=== PATIENT | female | born 1985 | race Caucasian/White ===

== ENCOUNTER 2017-11-04 20:45 | Emergency (ER) | payer MEDICAID ==
[~2017-11-04] VITALS: Ht 172.7 cm; Wt 55.0 kg
[2017-11-04] MEDS ORDERED: gentamicin inj 300 MG in normal saline 100ml IV soln 100 ML IV STA (21:11)
[2017-11-04] MEDS ORDERED: BACDS PO (21:17)
[2017-11-04] MEDS ORDERED: gentamicin 40 MG/1 ML inj ONE (21:21)
[2017-11-04] MEDS ORDERED: ampicillin/sulbac 3gm/NS 100ml 100 ML IV SCH (21:37)
[2017-11-04] MEDS ORDERED: bacitracin 15gm ointment TP ONE (21:55)
[2017-11-04 22:34] VITALS: BP 131/83
[2017-11-05] MEDS ORDERED: ampicillin/sulbac 3gm/NS 100ml 100 ML IV SCH (02:00)
[2017-11-05] MEDS ORDERED: lactobacillus rhamnosus 10,000 MMU CELLS/CAPSULE PO SCH (08:00)
== END 2017-11-04 22:35 | disposition home or self-care (01) ==
LOC: ER 20:45
DX: T24.112A Burn of first degree of left thigh, initial encounter (principal); T31.0 Burns involving less than 10% of body surface; L03.116 Cellulitis of left lower limb; F15.90 Other stimulant use, unspecified, uncomplicated; F17.210 Nicotine dependence, cigarettes, uncomplicated; Z88.5 Allergy status to narcotic agent; Z79.899 Other long term (current) drug therapy
CPT/HCPCS: 16000; 96365; 96368; 99284; J0295; J1580; J7030

== ENCOUNTER 2018-02-09 13:54 | Emergency (ER) | payer MEDICAID ==
[~2018-02-09] VITALS: Ht 172.7 cm; Wt 61.6 kg
[2018-02-09 14:21] LABS: CLARITY,URINE SLIGHTLY CLOUDY (Clear); COLOR,URINE YELLOW (Yellow); GLUCOSE, URINE NEGATIVE (Neg); KETONES,URINE NEGATIVE (Neg); LEUKOCYTE ESTERASE ,URINE NEGATIVE (Neg); NITRITES, URINE POSITIVE (Neg); OCCULT BLOOD,URINE NEGATIVE (Neg); PROTEIN,URINE NEGATIVE (Neg); UROBILINOGEN,URINE 0.2 E.U/dL (0.2-1.0)
[2018-02-09 14:22] LABS: URINE HCG NEGATIVE (NEG)
[2018-02-09 14:26] LABS: UA COLLECTION TYPE CLN CATCH MIDSTREAM
[2018-02-09 14:27] LABS: BACTERIA,URINE 3+ /HPF (Neg); RBC,URINE 0-2 /HPF (0-2); SQUAMOUS EPITHELIAL CELL,UR MODERATE /LPF (FEW)
[2018-02-09 14:35] LABS: BASOPHILS % (AUTO) 0.5 % (0-1); EOSINOPHILS # (AUTO) 0.1 X10'3 (0-0.9); EOSINOPHILS % (AUTO) 1.4 % (0-6); HEMATOCRIT 37.3 % (35.0-45.0); HEMOGLOBIN 13.1 g/dl (12.0-16.0); LYMPHOCYTES % (AUTO) 30.9 % (21-51); MEAN CORPUSCULAR HEMOGLOBIN 32.6 PG (27.0-31.0); MEAN PLATELET VOLUME 8.1 FL (7.4-10.4); MONOCYTES # (AUTO) 0.5 X10'3 (0-0.9); MONOCYTES % (AUTO) 7.6 % (2-12); NEUTROPHILS # (AUTO) 3.9 X10'3 (1.8-7.7); NEUTROPHILS % (AUTO) 59.6 % (42-75); PLATELET COUNT 355 X10'3 (140-440); RED BLOOD COUNT 4.01 X10'6 (4.20-5.60); RED CELL DISTRIBUTION WIDTH 12.1 % (11.5-14.5); WHITE BLOOD COUNT 6.5 X10'3 (4.5-11.0)
[2018-02-09 14:39] LABS: INR 1.1 INR; PROTHROMBIN TIME 11.3 SECONDS (9.0-12.0)
[2018-02-09 14:45] LABS: ALANINE AMINOTRANSFERASE 16 U/L (12-78); ALBUMIN 3.9 G/DL (3.4-5.0); ALBUMIN/GLOBULIN RATIO 1.3 (1.1-1.5); ALKALINE PHOSPHATASE 79 IU/L (46-116); ANION GAP 6 (8-16); ASPARTATE AMINO TRANSFERASE 11 U/L (10-37); BILIRUBIN,TOTAL 0.2 MG/DL (0.1-1.0); BLOOD UREA NITROGEN 15 MG/DL (7-18); BUN/CREATININE RATIO 17.6 (6.6-38.0); CALCIUM 9.4 MG/DL (8.5-10.1); CHLORIDE 106 MMOL/L (99-107); CREATININE 0.85 MG/DL (0.40-0.90); GLUCOSE 98 MG/DL (70-104); SODIUM 142 MMOL/L (135-145); TOTAL CARBON DIOXIDE 29.7 MMOL/L (24-32); TOTAL PROTEIN 6.8 G/DL (6.4-8.2); eGFR 77 ML/MIN
[2018-02-09 15:07] VITALS: BP 100/61
[2018-02-09] MEDS ORDERED: CIPR-230 PO (15:55)
== END 2018-02-09 16:10 | disposition home or self-care (01) ==
LOC: ER 13:54
DX: N39.0 Urinary tract infection, site not specified (principal); N83.201 Unspecified ovarian cyst, right side; G43.909 Migraine, unspecified, not intractable, without status migrainosus; J45.909 Unspecified asthma, uncomplicated; F15.90 Other stimulant use, unspecified, uncomplicated; Z88.6 Allergy status to analgesic agent
CPT/HCPCS: 36415; 76856; 80053; 81001; 81025; 85025; 85610; 87077; 87088; 87186; 99285

== ENCOUNTER 2018-02-17 10:39 | Emergency (ER) | payer MEDICAID ==
[~2018-02-17] VITALS: Ht 172.7 cm; Wt 61.0 kg
[~2018-02-17 10:39] MED LIST: CIPR-230 PO
[2018-02-17 10:45] VITALS: BP 122/66
[2018-02-17] MEDS ORDERED: PENI500T2 PO (11:06)
== END 2018-02-17 11:17 | disposition home or self-care (01) ==
LOC: ER 10:40
DX: J02.9 Acute pharyngitis, unspecified (principal); G43.909 Migraine, unspecified, not intractable, without status migrainosus; J45.909 Unspecified asthma, uncomplicated; F15.10 Other stimulant abuse, uncomplicated; Z88.5 Allergy status to narcotic agent; Z79.2 Long term (current) use of antibiotics
CPT/HCPCS: 99283

== ENCOUNTER 2018-03-09 05:12 | Emergency (ER) | payer MEDICAID ==
[~2018-03-09] VITALS: Ht 172.7 cm; Wt 90.3 kg
[~2018-03-09 05:12] MED LIST changes: +PENI500T2 PO
[2018-03-09 05:18] VITALS: BP 115/82
== END 2018-03-09 06:14 | disposition left against medical advice (07) ==
LOC: ER 05:13
DX: S90.562A Insect bite (nonvenomous), left ankle, initial encounter (principal); Z53.21 Procedure and treatment not carried out due to patient leaving prior to being seen by health care provider; W57.XXXA Bitten or stung by nonvenomous insect and other nonvenomous arthropods, initial encounter; Y93.89 Activity, other specified; Y92.89 Other specified places as the place of occurrence of the external cause; Y99.8 Other external cause status

== ENCOUNTER 2018-03-26 15:17 | Emergency (ER) | payer MEDICAID ==
[~2018-03-26] VITALS: Ht 172.7 cm; Wt 61.0 kg
[2018-03-26 15:19] VITALS: BP 122/73
[2018-03-26] MEDS ORDERED: metoclopramide 5 mg/ml inj IV ONE (16:00)
[2018-03-26] MEDS ORDERED: normal saline 1000ML IV soln IVB ONE (16:00)
[2018-03-26] MEDS ORDERED: LORazepam 2 mg/ml vial IV ONE (16:00)
[2018-03-26] MEDS ORDERED: dexamethasone sod phosphate 10mg/ml inj IV STA (16:39)
[2018-03-26] MEDS ORDERED: ketorolac trometh. 30mg/ml inj. IV ONE (16:40)
[2018-03-26] MEDS ORDERED: SUMA100T PO (16:43)
== END 2018-03-26 17:21 | disposition home or self-care (01) ==
LOC: ER 15:17
DX: G43.909 Migraine, unspecified, not intractable, without status migrainosus (principal); J45.909 Unspecified asthma, uncomplicated; H53.149 Visual discomfort, unspecified; F15.90 Other stimulant use, unspecified, uncomplicated; Z88.5 Allergy status to narcotic agent; Z79.899 Other long term (current) drug therapy; Z87.891 Personal history of nicotine dependence
CPT/HCPCS: 70450; 96374; 96375; 99284; J1100; J1885; J2060; J2765; J7030; 96372

== ENCOUNTER 2018-04-04 20:36 | Emergency (ER) | payer MEDICAID ==
[~2018-04-04] VITALS: Ht 172.7 cm; Wt 54.0 kg
[~2018-04-04 20:36] MED LIST changes: -CIPR-230 PO; -PENI500T2 PO; +SUMA100T PO
[2018-04-04 21:45] LABS: BASOPHILS % (AUTO) 0.3 % (0-1); EOSINOPHILS # (AUTO) 0.1 X10'3 (0-0.9); EOSINOPHILS % (AUTO) 1.8 % (0-6); HEMATOCRIT 40.2 % (35.0-45.0); HEMOGLOBIN 13.3 g/dl (12.0-16.0); LYMPHOCYTES # (AUTO) 1.8 X10'3 (1.1-4.8); LYMPHOCYTES % (AUTO) 28.1 % (21-51); MEAN CORPUSCULAR HEMOGLOBIN 30.3 PG (27.0-31.0); MEAN CORPUSCULAR VOLUME 91.8 FL (78-98); MEAN PLATELET VOLUME 8.1 FL (7.4-10.4); MONOCYTES # (AUTO) 0.5 X10'3 (0-0.9); MONOCYTES % (AUTO) 7.1 % (2-12); NEUTROPHILS # (AUTO) 4.1 X10'3 (1.8-7.7); NEUTROPHILS % (AUTO) 62.7 % (42-75); PLATELET COUNT 413 X10'3 (140-440); RED BLOOD COUNT 4.38 X10'6 (4.20-5.60); RED CELL DISTRIBUTION WIDTH 12.7 % (11.5-14.5); WHITE BLOOD COUNT 6.5 X10'3 (4.5-11.0)
[2018-04-04 21:59] LABS: URINE HCG NEGATIVE (NEG)
[2018-04-04 22:21] VITALS: BP 113/73
== END 2018-04-04 22:25 | disposition home or self-care (01) ==
LOC: ER 20:36
DX: N93.9 Abnormal uterine and vaginal bleeding, unspecified (principal); J45.909 Unspecified asthma, uncomplicated; G43.909 Migraine, unspecified, not intractable, without status migrainosus; F15.90 Other stimulant use, unspecified, uncomplicated; Z88.5 Allergy status to narcotic agent; Z79.899 Other long term (current) drug therapy
CPT/HCPCS: 36415; 81025; 85025; 99283

== ENCOUNTER 2018-04-12 21:52 | Emergency (ER) | payer MEDICAID ==
[~2018-04-12] VITALS: Ht 172.7 cm; Wt 61.0 kg
[2018-04-12 21:59] VITALS: BP 123/74
[2018-04-12 22:54] LABS: ALANINE AMINOTRANSFERASE 16 U/L (12-78); ALBUMIN 3.5 G/DL (3.4-5.0); ALKALINE PHOSPHATASE 70 IU/L (46-116); ANION GAP 9 (8-16); ASPARTATE AMINO TRANSFERASE 10 U/L (10-37); BILIRUBIN,TOTAL 0.1 MG/DL (0.1-1.0); BLOOD UREA NITROGEN 15 MG/DL (7-18); CALCIUM 9.3 MG/DL (8.5-10.1); CHLORIDE 105 MMOL/L (99-107); GLUCOSE 107 MG/DL (70-104); POTASSIUM 3.3 MMOL/L (3.5-5.1); SODIUM 141 MMOL/L (135-145); TOTAL CARBON DIOXIDE 26.9 MMOL/L (24-32); TOTAL PROTEIN 6.9 G/DL (6.4-8.2); eGFR > 90 ML/MIN
[2018-04-12 22:56] LABS: INR 1.1 INR; PROTHROMBIN TIME 10.7 SECONDS (9.0-12.0)
[2018-04-12 23:06] LABS: CLARITY,URINE SLIGHTLY CLOUDY (Clear); COLOR,URINE YELLOW (Yellow); GLUCOSE, URINE NEGATIVE (Neg); KETONES,URINE TRACE mg/dl (Neg); LEUKOCYTE ESTERASE ,URINE SMALL (Neg); NITRITES, URINE NEGATIVE (Neg); OCCULT BLOOD,URINE NEGATIVE (Neg); PROTEIN,URINE NEGATIVE (Neg); URINE HCG NEGATIVE (NEG); UROBILINOGEN,URINE 0.2 E.U/dL (0.2-1.0)
[2018-04-12 23:07] LABS: UA COLLECTION TYPE CLN CATCH MIDSTREAM
[2018-04-12 23:10] LABS: BASOPHILS # (AUTO) 0.1 X10'3 (0-0.2); BASOPHILS % (AUTO) 0.9 % (0-1); EOSINOPHILS # (AUTO) 0.1 X10'3 (0-0.9); EOSINOPHILS % (AUTO) 1.4 % (0-6); HEMATOCRIT 34.4 % (35.0-45.0); HEMOGLOBIN 11.5 g/dl (12.0-16.0); LYMPHOCYTES # (AUTO) 2.3 X10'3 (1.1-4.8); LYMPHOCYTES % (AUTO) 26.6 % (21-51); MEAN CORPUSCULAR HEMOGLOBIN 30.3 PG (27.0-31.0); MEAN CORPUSCULAR HGB CONC 33.4 % (33.0-36.5); MEAN CORPUSCULAR VOLUME 90.8 FL (78-98); MEAN PLATELET VOLUME 8.6 FL (7.4-10.4); MONOCYTES # (AUTO) 0.6 X10'3 (0-0.9); MONOCYTES % (AUTO) 7.1 % (2-12); NEUTROPHILS # (AUTO) 5.4 X10'3 (1.8-7.7); PLATELET COUNT 377 X10'3 (140-440); RED BLOOD COUNT 3.79 X10'6 (4.20-5.60); WHITE BLOOD COUNT 8.5 X10'3 (4.5-11.0)
[2018-04-12 23:24] LABS: BACTERIA,URINE FEW /HPF (Neg); MUCUS STRANDS MODERATE /LPF (Neg); RBC,URINE NONE SEEN /HPF (0-2); SQUAMOUS EPITHELIAL CELL,UR MODERATE /LPF (FEW); WBC,URINE 30-50 /HPF (0-4)
[2018-04-12 23:25] LABS: CAL OXALATE CRYSTALS 1+ /HPF (NEGATIVE)
[2018-04-12] MEDS ORDERED: DOXYCYCLINE 100MG CAPSULE PO STA (23:30)
[2018-04-12] MEDS ORDERED: metroNIDAZOLE 500mg tablet PO ONE (23:30)
[2018-04-12] MEDS ORDERED: CefTRIAXone 250MG IM Kit w/LIDOcaine IM ONE (23:30)
[2018-04-12] MEDS ORDERED: FLUC200T PO (23:38)
[2018-04-12] MEDS ORDERED: DOXY100C2 PO (23:38)
[2018-04-12] MEDS ORDERED: NITR-79 PO (23:38)
[2018-04-12] MEDS ORDERED: METR500T PO (23:39)
== END 2018-04-12 23:58 | disposition home or self-care (01) ==
LOC: ER 21:53
DX: N73.9 Female pelvic inflammatory disease, unspecified (principal); J45.909 Unspecified asthma, uncomplicated; F15.90 Other stimulant use, unspecified, uncomplicated; Z88.5 Allergy status to narcotic agent; Z79.899 Other long term (current) drug therapy
CPT/HCPCS: 36415; 80053; 81001; 81025; 85025; 85610; 87088; 96372; 99283; J0696; J3490

== ENCOUNTER 2018-05-14 09:35 | Emergency (ER) | payer MEDICAID ==
[~2018-05-14] VITALS: Ht 172.7 cm; Wt 61.4 kg
[~2018-05-14 09:35] MED LIST changes: +FLUC200T PO; +NITR-79 PO; -SUMA100T PO
[2018-05-14 10:19] LABS: CLARITY,URINE CLOUDY (Clear); COLOR,URINE YELLOW (Yellow); GLUCOSE, URINE NEGATIVE (Neg); KETONES,URINE NEGATIVE (Neg); LEUKOCYTE ESTERASE ,URINE NEGATIVE (Neg); NITRITES, URINE NEGATIVE (Neg); OCCULT BLOOD,URINE NEGATIVE (Neg); PROTEIN,URINE NEGATIVE (Neg); UROBILINOGEN,URINE 0.2 E.U/dL (0.2-1.0)
[2018-05-14 10:20] LABS: URINE HCG NEGATIVE (NEG)
[2018-05-14 10:21] LABS: UA COLLECTION TYPE CLN CATCH MIDSTREAM
[2018-05-14] MEDS ORDERED: ONDA4TAB6 PO (10:21)
[2018-05-14 10:29] LABS: AMORPHOUS PHOSPHATES 3+; MUCUS STRANDS MODERATE /LPF (Neg); SQUAMOUS EPITHELIAL CELL,UR MANY /LPF (FEW)
[2018-05-14 10:30] LABS: BACTERIA,URINE FEW /HPF (Neg); RBC,URINE 0-2 /HPF (0-2); WBC,URINE 0-4 /HPF (0-4)
[2018-05-14 10:38] VITALS: BP 100/70
== END 2018-05-14 10:40 | disposition home or self-care (01) ==
LOC: ER 09:35
DX: R11.10 Vomiting, unspecified (principal); G43.909 Migraine, unspecified, not intractable, without status migrainosus; J45.909 Unspecified asthma, uncomplicated; F15.90 Other stimulant use, unspecified, uncomplicated; Z88.6 Allergy status to analgesic agent; Z79.899 Other long term (current) drug therapy
CPT/HCPCS: 81001; 81025; 99283

== ENCOUNTER 2018-06-14 20:54 | Emergency (ER) | payer MEDICAID ==
[~2018-06-14] VITALS: Ht 172.7 cm; Wt 60.4 kg
[~2018-06-14 20:54] MED LIST changes: +ONDA4TAB6 PO
[2018-06-14 21:33] LABS: CLARITY,URINE SLIGHTLY CLOUDY (Clear); COLOR,URINE YELLOW (Yellow); GLUCOSE, URINE NEGATIVE (Neg); KETONES,URINE NEGATIVE (Neg); LEUKOCYTE ESTERASE ,URINE SMALL (Neg); NITRITES, URINE POSITIVE (Neg); OCCULT BLOOD,URINE MODERATE (Neg); PH,URINE 5.5 (4.8-8.0); PROTEIN,URINE 100 mg/dl (Neg); URINE HCG NEGATIVE (NEG); UROBILINOGEN,URINE 0.2 E.U/dL (0.2-1.0)
[2018-06-14 21:48] LABS: UA COLLECTION TYPE CLN CATCH MIDSTREAM
[2018-06-14 21:51] LABS: BACTERIA,URINE FEW /HPF (Neg); RBC,URINE 0-2 /HPF (0-2); SPERM FEW /HPF; SQUAMOUS EPITHELIAL CELL,UR FEW /LPF (FEW); WBC CLUMPS,URINE MODERATE /HPF (NEGATIVE); WBC,URINE 30-50 /HPF (0-4)
--- NOTE | 2018-06-14 22:17 | NUR ---
PT REFUSING LAB DRAW AT THIS TIME.
[2018-06-14] MEDS ORDERED: CEPH500C5 PO (22:27)
[2018-06-14 22:37] VITALS: BP 110/62
== END 2018-06-14 22:40 | disposition home or self-care (01) ==
LOC: ER 20:55
DX: N39.0 Urinary tract infection, site not specified (principal); J45.909 Unspecified asthma, uncomplicated; F15.90 Other stimulant use, unspecified, uncomplicated; Z90.49 Acquired absence of other specified parts of digestive tract; Z88.5 Allergy status to narcotic agent; Z79.2 Long term (current) use of antibiotics; Z79.899 Other long term (current) drug therapy
CPT/HCPCS: 81001; 81025; 99283

== ENCOUNTER 2019-12-04 16:01 | Emergency (ER) | payer MEDICAID, OTHER ==
[~2019-12-04] VITALS: Ht 172.7 cm; Wt 63.0 kg
[2019-12-04 16:14] VITALS: BP 122/76
[2019-12-04] MEDS ORDERED: diphenhydrAMINE 25mg capsule PO ONE (17:05)
[2019-12-04] MEDS ORDERED: DIPH25CA83 PO (17:07)
== END 2019-12-04 17:19 | disposition home or self-care (01) ==
LOC: ER 16:01
DX: T63.441A Toxic effect of venom of bees, accidental (unintentional), initial encounter (principal); T78.40XA Allergy, unspecified, initial encounter; G43.909 Migraine, unspecified, not intractable, without status migrainosus; J45.909 Unspecified asthma, uncomplicated; F15.90 Other stimulant use, unspecified, uncomplicated; Z90.49 Acquired absence of other specified parts of digestive tract; Z88.5 Allergy status to narcotic agent; Z79.899 Other long term (current) drug therapy; X58.XXXA Exposure to other specified factors, initial encounter; Y92.89 Other specified places as the place of occurrence of the external cause
CPT/HCPCS: 99282; Q0163

== ENCOUNTER 2020-02-03 00:47 | Emergency (ER) | payer MEDICAID ==
[~2020-02-03] VITALS: Ht 172.7 cm; Wt 63.6 kg
[~2020-02-03 00:47] MED LIST changes: +DIPH25CA83 PO
[2020-02-03 00:55] VITALS: BP 130/75
== END 2020-02-03 01:36 | disposition home or self-care (01) ==
LOC: ER 00:48
DX: Z00.00 Encounter for general adult medical examination without abnormal findings (principal); G43.909 Migraine, unspecified, not intractable, without status migrainosus; J45.909 Unspecified asthma, uncomplicated; F15.90 Other stimulant use, unspecified, uncomplicated; Z90.49 Acquired absence of other specified parts of digestive tract; Z72.89 Other problems related to lifestyle; Z88.5 Allergy status to narcotic agent; Z79.899 Other long term (current) drug therapy
CPT/HCPCS: 36415; 99281

== ENCOUNTER 2020-03-10 19:21 | Emergency (ER) | payer MEDICAID ==
[~2020-03-10] VITALS: Ht 172.7 cm; Wt 57.0 kg
[2020-03-10 19:45] LABS: CLARITY,URINE SLIGHTLY CLOUDY (Clear); COLOR,URINE YELLOW (Yellow); GLUCOSE, URINE NEGATIVE (Neg); KETONES,URINE 15 mg/dl (Neg); LEUKOCYTE ESTERASE ,URINE SMALL (Neg); NITRITES, URINE POSITIVE (Neg); OCCULT BLOOD,URINE NEGATIVE (Neg); PROTEIN,URINE TRACE mg/dl (Neg)
[2020-03-10 19:47] LABS: BASOPHILS % (AUTO) 0.2 % (0-1); EOSINOPHILS % (AUTO) 0.1 % (0-6); HEMATOCRIT 39.1 % (35.0-45.0); HEMOGLOBIN 13.1 g/dl (12.0-16.0); LYMPHOCYTES # (AUTO) 1.3 X10'3 (1.1-4.8); MEAN CORPUSCULAR HGB CONC 33.5 g/dL (33.0-36.5); MEAN CORPUSCULAR VOLUME 92.6 FL (78-98); MEAN PLATELET VOLUME 7.4 FL (7.4-10.4); MONOCYTES # (AUTO) 0.9 X10'3 (0-0.9); MONOCYTES % (AUTO) 5.3 % (2-12); NEUTROPHILS # (AUTO) 13.8 X10'3 (1.8-7.7); NEUTROPHILS % (AUTO) 86.4 % (42-75); PLATELET COUNT 377 X10'3 (140-440); RED BLOOD COUNT 4.22 X10'6 (4.20-5.60); RED CELL DISTRIBUTION WIDTH 13.2 % (11.5-14.5)
[2020-03-10 19:47] LABS: URINE HCG NEGATIVE (NEG)
[2020-03-10 19:48] LABS: UA COLLECTION TYPE CLN CATCH MIDSTREAM
[2020-03-10 19:50] LABS: BACTERIA,URINE 4+ /HPF (Neg); RBC,URINE 0-2 /HPF (0-2); SQUAMOUS EPITHELIAL CELL,UR FEW /LPF (FEW)
[2020-03-10 20:01] LABS: ALANINE AMINOTRANSFERASE 16 U/L (12-78); ALBUMIN 4.2 G/DL (3.4-5.0); ALBUMIN/GLOBULIN RATIO 1.2 (1.1-1.5); ALKALINE PHOSPHATASE 92 IU/L (46-116); ANION GAP 8 (8-16); ASPARTATE AMINO TRANSFERASE 11 U/L (10-37); BILIRUBIN,TOTAL 0.6 MG/DL (0.1-1.0); BLOOD UREA NITROGEN 8 MG/DL (7-18); BUN/CREATININE RATIO 11.1 (6.6-38.0); CALCIUM 9.2 MG/DL (8.5-10.1); CHLORIDE 102 MMOL/L (99-107); CREATININE 0.72 MG/DL (0.40-0.90); GLUCOSE 113 MG/DL (70-104); LIPASE 60 U/L (73-393); POTASSIUM 3.2 MMOL/L (3.5-5.1); SODIUM 138 MMOL/L (135-145); TOTAL CARBON DIOXIDE 27.9 MMOL/L (24-32); TOTAL PROTEIN 7.7 G/DL (6.4-8.2); eGFR > 90 ML/MIN
[2020-03-10] MEDS ORDERED: CefTRIAXone 1000mg IM Kit (w/lidocaine diluent) IM ONE (20:15)
[2020-03-10] MEDS ORDERED: HYDROcodone/acetaminophen 5mg/325mg tablet PO ONE (21:50)
[2020-03-10] MEDS ORDERED: CEPH500C5 PO (22:05)
[2020-03-10] MEDS ORDERED: HYDR-4383 PO (22:06)
[2020-03-10 23:00] VITALS: BP 100/63
== END 2020-03-10 22:37 | disposition home or self-care (01) ==
LOC: ER 19:22
DX: N10 Acute pyelonephritis (principal); R10.32 Left lower quadrant pain; R11.0 Nausea; G43.909 Migraine, unspecified, not intractable, without status migrainosus; J45.909 Unspecified asthma, uncomplicated; F15.90 Other stimulant use, unspecified, uncomplicated; Z90.89 Acquired absence of other organs; Z72.89 Other problems related to lifestyle; Z88.5 Allergy status to narcotic agent; Z79.2 Long term (current) use of antibiotics; Z79.899 Other long term (current) drug therapy
CPT/HCPCS: 36415; 76856; 80053; 81001; 81025; 83690; 85025; 87088; 87186; 93976; 96372; 99284; J0696; 87077

== ENCOUNTER 2020-03-29 00:44 | Emergency (ER) | payer MEDICAID ==
[~2020-03-29] VITALS: Ht 172.7 cm; Wt 56.0 kg
[~2020-03-29 00:44] MED LIST changes: +CEPH500C5 PO; +HYDR-4383 PO
[2020-03-29 01:33] LABS: URINE HCG NEGATIVE (NEG)
[2020-03-29 01:42] LABS: CLARITY,URINE CLEAR (Clear); COLOR,URINE YELLOW (Yellow); GLUCOSE, URINE NEGATIVE (Neg); KETONES,URINE NEGATIVE (Neg); LEUKOCYTE ESTERASE ,URINE NEGATIVE (Neg); NITRITES, URINE NEGATIVE (Neg); OCCULT BLOOD,URINE SMALL (Neg); PROTEIN,URINE NEGATIVE (Neg); UROBILINOGEN,URINE 0.2 E.U/dL (0.2-1.0)
[2020-03-29 01:48] LABS: UA COLLECTION TYPE CLN CATCH MIDSTREAM
[2020-03-29 01:49] LABS: BACTERIA,URINE NONE SEEN /HPF (Neg); RBC,URINE 0-2 /HPF (0-2); SQUAMOUS EPITHELIAL CELL,UR FEW /LPF (FEW)
[2020-03-29 01:55] LABS: BASOPHILS # (AUTO) 0.1 X10'3 (0-0.2); HEMOGLOBIN 12.7 g/dl (12.0-16.0); RED CELL DISTRIBUTION WIDTH 13.2 % (11.5-14.5)
[2020-03-29 01:57] LABS: EOSINOPHILS % (AUTO) 0.6 % (0-6); HEMATOCRIT 36.8 % (35.0-45.0); LYMPHOCYTES # (AUTO) 1.8 X10'3 (1.1-4.8); LYMPHOCYTES % (AUTO) 29.4 % (21-51); MEAN CORPUSCULAR HEMOGLOBIN 31.3 PG (27.0-31.0); MEAN CORPUSCULAR HGB CONC 34.5 g/dL (33.0-36.5); MEAN CORPUSCULAR VOLUME 90.8 FL (78-98); MEAN PLATELET VOLUME 7.1 FL (7.4-10.4); MONOCYTES # (AUTO) 0.4 X10'3 (0-0.9); MONOCYTES % (AUTO) 5.7 % (2-12); NEUTROPHILS % (AUTO) 63.3 % (42-75); PLATELET COUNT 804 X10'3 (140-440); RED BLOOD COUNT 4.05 X10'6 (4.20-5.60); WHITE BLOOD COUNT 6.3 X10'3 (4.5-11.0)
[2020-03-29 02:03] LABS: ALANINE AMINOTRANSFERASE 13 U/L (12-78); ALBUMIN 3.9 G/DL (3.4-5.0); ALKALINE PHOSPHATASE 94 IU/L (46-116); ANION GAP 11 (8-16); ASPARTATE AMINO TRANSFERASE 15 U/L (10-37); BILIRUBIN,TOTAL 0.3 MG/DL (0.1-1.0); BLOOD UREA NITROGEN 16 MG/DL (7-18); CALCIUM 9.5 MG/DL (8.5-10.1); CHLORIDE 105 MMOL/L (99-107); CREATININE 0.94 MG/DL (0.40-0.90); GLUCOSE 148 MG/DL (70-104); LIPASE 123 U/L (73-393); POTASSIUM 3.8 MMOL/L (3.5-5.1); SODIUM 142 MMOL/L (135-145); TOTAL CARBON DIOXIDE 26.1 MMOL/L (24-32); TOTAL PROTEIN 7.8 G/DL (6.4-8.2); eGFR 68 ML/MIN
[2020-03-29 02:26] VITALS: BP 126/84
== END 2020-03-29 02:28 | disposition home or self-care (01) ==
LOC: ER 00:45
DX: N93.8 Other specified abnormal uterine and vaginal bleeding (principal); G43.909 Migraine, unspecified, not intractable, without status migrainosus; J45.909 Unspecified asthma, uncomplicated; F15.90 Other stimulant use, unspecified, uncomplicated; Z90.89 Acquired absence of other organs; Z72.89 Other problems related to lifestyle; Z88.5 Allergy status to narcotic agent; Z79.2 Long term (current) use of antibiotics; Z79.899 Other long term (current) drug therapy
CPT/HCPCS: 36415; 80053; 81001; 81025; 83690; 85025; 87088; 99283

== ENCOUNTER 2020-04-09 20:00 | Emergency (ER) | payer MEDICAID ==
[~2020-04-09] VITALS: Ht 172.7 cm; Wt 56.8 kg
--- NOTE | 2020-04-09 20:07 | NUR ---
PT REPORTS UNABLE TO PROVIDE URINE AT THIS TIME
[2020-04-09] MEDS ORDERED: ondansetron/PF 4mg/2ml inj IV ONE (20:15)
[2020-04-09] MEDS ORDERED: normal saline 1000ML IV soln IVB ONE (20:15)
[2020-04-09] MEDS ORDERED: ketorolac tromethamine 15mg/ml inj. IV ONE (20:20)
[2020-04-09] MEDS: morphine 4 MG/ML inj SYRINge IV PRN ×2 (20:41→21:47)
[2020-04-09 21:01] LABS: BASOPHILS % (AUTO) 0.6 % (0-1); EOSINOPHILS # (AUTO) 0.1 X10'3 (0-0.9); EOSINOPHILS % (AUTO) 0.9 % (0-6); HEMATOCRIT 37.9 % (35.0-45.0); HEMOGLOBIN 12.8 g/dl (12.0-16.0); LYMPHOCYTES # (AUTO) 2.3 X10'3 (1.1-4.8); LYMPHOCYTES % (AUTO) 34.8 % (21-51); MEAN CORPUSCULAR HEMOGLOBIN 31.3 PG (27.0-31.0); MEAN CORPUSCULAR HGB CONC 33.6 g/dL (33.0-36.5); MEAN PLATELET VOLUME 7.4 FL (7.4-10.4); MONOCYTES # (AUTO) 0.5 X10'3 (0-0.9); NEUTROPHILS # (AUTO) 3.7 X10'3 (1.8-7.7); NEUTROPHILS % (AUTO) 55.7 % (42-75); PLATELET COUNT 464 X10'3 (140-440); RED BLOOD COUNT 4.08 X10'6 (4.20-5.60); RED CELL DISTRIBUTION WIDTH 14.6 % (11.5-14.5); WHITE BLOOD COUNT 6.6 X10'3 (4.5-11.0)
[2020-04-09 21:31] LABS: ALANINE AMINOTRANSFERASE 22 U/L (12-78); ALBUMIN 4.4 G/DL (3.4-5.0); ALBUMIN/GLOBULIN RATIO 1.3 (1.1-1.5); ALKALINE PHOSPHATASE 90 IU/L (46-116); ANION GAP 11 (8-16); ASPARTATE AMINO TRANSFERASE 15 U/L (10-37); BILIRUBIN,TOTAL 0.3 MG/DL (0.1-1.0); BLOOD UREA NITROGEN 12 MG/DL (7-18); BUN/CREATININE RATIO 16.2 (6.6-38.0); CALCIUM 9.5 MG/DL (8.5-10.1); CHLORIDE 103 MMOL/L (99-107); CREATININE 0.74 MG/DL (0.40-0.90); GLUCOSE 93 MG/DL (70-104); POTASSIUM 3.1 MMOL/L (3.5-5.1); SODIUM 140 MMOL/L (135-145); TOTAL CARBON DIOXIDE 26.5 MMOL/L (24-32); TOTAL PROTEIN 7.9 G/DL (6.4-8.2); eGFR 89 ML/MIN
[2020-04-09] MEDS ORDERED: potassium Cl 20 mEq SR tablet PO STA (21:33)
[2020-04-09 21:37] LABS: BETA HCG,QUANTITATIVE < 1.0 mIU/ml; LIPASE 135 U/L (73-393)
[2020-04-09 22:08] LABS: URINE HCG NEGATIVE (NEG)
[2020-04-09 22:12] LABS: CLARITY,URINE SLIGHTLY CLOUDY (Clear); COLOR,URINE YELLOW (Yellow); GLUCOSE, URINE NEGATIVE (Neg); KETONES,URINE TRACE mg/dl (Neg); LEUKOCYTE ESTERASE ,URINE TRACE (Neg); NITRITES, URINE POSITIVE (Neg); OCCULT BLOOD,URINE NEGATIVE (Neg); PROTEIN,URINE NEGATIVE (Neg); UROBILINOGEN,URINE 0.2 E.U/dL (0.2-1.0)
--- NOTE | 2020-04-09 22:23 | NUR ---
Pt refusing pain meds at this time. Pt complaining of cramping in rib/abdomen area. Will continue to monitor.
[2020-04-09 22:37] LABS: UA COLLECTION TYPE CLN CATCH MIDSTREAM
[2020-04-09 22:39] LABS: BACTERIA,URINE 2+ /HPF (Neg); RBC,URINE NONE SEEN /HPF (0-2); SQUAMOUS EPITHELIAL CELL,UR FEW /LPF (FEW)
[2020-04-10] MEDS ORDERED: OLANZapine **IM** 10 mg inj. IM ONE
[2020-04-10] MEDS ORDERED: HYDR-4353 PO (01:10)
[2020-04-10] MEDS ORDERED: HYDROcodone/acetaminophen 10/325mg tab PO ONE (01:10)
[2020-04-10 01:33] VITALS: BP 115/76
--- NOTE | 2020-04-10 01:33 | NUR ---
Patient refused norco and rx for norco stating she did not want narcotics at this time.
--- NOTE | 2020-04-12 09:50 | NUR ---
PT CALLED REGARDING LAB ON 04/09/20, NO ANSWER, MSG LEFT TO RETURN CALL.
--- NOTE | 2020-04-12 10:22 | NUR ---
PT RETURNED CALL AND INFORMED THAT LAB ON 04/09 WAS POSITIVE FOR UTI. PT REQUESTED THAT RX BE CALLED INTO [facility] ON [facility]. LEVOQUIN 500MG, 1 TABLET PO QDAY x7 DAYS, #7, NO REFILLS WAS CALLED TO [facility] PT REQUESTED. PT WAS EDUCATED ON HOW TO HELP PREVENT REOCCURING UTIs
== END 2020-04-10 01:35 | disposition home or self-care (01) ==
LOC: ER 20:01
DX: E87.6 Hypokalemia (principal); N83.201 Unspecified ovarian cyst, right side; N93.8 Other specified abnormal uterine and vaginal bleeding; R10.30 Lower abdominal pain, unspecified; G43.909 Migraine, unspecified, not intractable, without status migrainosus; J45.909 Unspecified asthma, uncomplicated; F15.90 Other stimulant use, unspecified, uncomplicated; Z90.89 Acquired absence of other organs; Z72.89 Other problems related to lifestyle; Z88.5 Allergy status to narcotic agent; Z79.2 Long term (current) use of antibiotics; Z79.899 Other long term (current) drug therapy
CPT/HCPCS: 36415; 74176; 76830; 80053; 81001; 81025; 83690; 84702; 85025; 87077; 87088; 87186; 96361; 96374; 96375; 96376; 99285; J1885; J2270; J2405; J7030

== ENCOUNTER 2020-04-13 03:39 | Emergency (ER) | payer MEDICAID ==
[~2020-04-13] VITALS: Ht 172.7 cm; Wt 45.5 kg
[~2020-04-13 03:39] MED LIST changes: +HYDR-4353 PO
[2020-04-13] MEDS ORDERED: morphine 4 MG/ML inj SYRINge IV ONE (05:00)
[2020-04-13] MEDS ORDERED: ondansetron/PF 4mg/2ml inj IV ONE (05:00)
[2020-04-13] MEDS ORDERED: normal saline 1000ML IV soln IVB ONE (05:00)
[2020-04-13 05:52] LABS: ALANINE AMINOTRANSFERASE 56 U/L (12-78); ALBUMIN 3.5 G/DL (3.4-5.0); ALBUMIN/GLOBULIN RATIO 0.9 (1.1-1.5); ALKALINE PHOSPHATASE 91 IU/L (46-116); ANION GAP 8 (8-16); ASPARTATE AMINO TRANSFERASE 14 U/L (10-37); BLOOD UREA NITROGEN 10 MG/DL (7-18); BUN/CREATININE RATIO 15.2 (6.6-38.0); CALCIUM 9.6 MG/DL (8.5-10.1); CHLORIDE 103 MMOL/L (99-107); CREATININE 0.66 MG/DL (0.40-0.90); GLUCOSE 103 MG/DL (70-104); LIPASE < 50 U/L (73-393); POTASSIUM 3.8 MMOL/L (3.5-5.1); SODIUM 138 MMOL/L (135-145); TOTAL CARBON DIOXIDE 27.5 MMOL/L (24-32); TOTAL PROTEIN 7.2 G/DL (6.4-8.2); eGFR > 90 ML/MIN
[2020-04-13 05:54] LABS: BASOPHILS % (AUTO) 0.3 % (0-1); EOSINOPHILS % (AUTO) 0.2 % (0-6); HEMATOCRIT 38.7 % (35.0-45.0); HEMOGLOBIN 12.9 g/dl (12.0-16.0); LYMPHOCYTES # (AUTO) 1.1 X10'3 (1.1-4.8); MEAN CORPUSCULAR HEMOGLOBIN 30.9 PG (27.0-31.0); MEAN CORPUSCULAR HGB CONC 33.3 g/dL (33.0-36.5); MEAN CORPUSCULAR VOLUME 92.8 FL (78-98); MEAN PLATELET VOLUME 7.7 FL (7.4-10.4); MONOCYTES # (AUTO) 0.9 X10'3 (0-0.9); MONOCYTES % (AUTO) 8.7 % (2-12); NEUTROPHILS # (AUTO) 8.4 X10'3 (1.8-7.7); NEUTROPHILS % (AUTO) 79.8 % (42-75); PLATELET COUNT 378 X10'3 (140-440); RED BLOOD COUNT 4.18 X10'6 (4.20-5.60); RED CELL DISTRIBUTION WIDTH 14.6 % (11.5-14.5); WHITE BLOOD COUNT 10.5 X10'3 (4.5-11.0)
[2020-04-13 06:44] LABS: URINE HCG NEGATIVE (NEG)
[2020-04-13] MEDS ORDERED: iohexol 300mg/ml 100ml inj. ONE (06:46)
[2020-04-13 06:48] LABS: ETHANOL < 0.010 GM/DL (0.0-0.010)
[2020-04-13 07:02] LABS: URINE AMPHETAMINE SCREEN POSITIVE (Neg); URINE BARBITUATE SCREEN NEGATIVE (Neg); URINE BENZODIAZEPINES SCREEN NEGATIVE (Neg); URINE CANNABINOID SCREEN NEGATIVE (Neg); URINE COCAINE SCREEN NEGATIVE (Neg); URINE METHADONE SCREEN NEGATIVE (Neg); URINE OPIATE SCREEN POSITIVE (Neg); URINE PHENCYCLIDINE SCREEN NEGATIVE (Neg)
[2020-04-13 07:05] LABS: CLARITY,URINE SLIGHTLY CLOUDY (Clear); COLOR,URINE YELLOW (Yellow); GLUCOSE, URINE NEGATIVE (Neg); KETONES,URINE 40 mg/dl (Neg); LEUKOCYTE ESTERASE ,URINE NEGATIVE (Neg); NITRITES, URINE NEGATIVE (Neg); OCCULT BLOOD,URINE NEGATIVE (Neg); PH,URINE 7.5 (4.8-8.0); PROTEIN,URINE NEGATIVE (Neg)
[2020-04-13 07:11] LABS: UA COLLECTION TYPE CLN CATCH MIDSTREAM
[2020-04-13 07:12] LABS: MUCUS STRANDS FEW /LPF (Neg); SQUAMOUS EPITHELIAL CELL,UR FEW /LPF (FEW)
[2020-04-13 07:15] LABS: BACTERIA,URINE 1+ /HPF (Neg); RBC,URINE 0-2 /HPF (0-2); WBC,URINE 0-4 /HPF (0-4)
[2020-04-13] MEDS ORDERED: ketorolac trometh. 30mg/ml inj. IV ONE (07:50)
[2020-04-13] MEDS ORDERED: fentaNYL/PF 50MCG/1 ML 2ML syringe IV ONE ×2 (08:15→12:40)
--- NOTE | 2020-04-13 08:47 | NUR ---
PT TAKEN TO MRI
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
--- NOTE | 2020-04-13 11:25 | NUR ---
Pt now having MRI done.
[2020-04-13] MEDS ORDERED: GADOTERATE MEGLUMINE 7.5 MMOL/15 ML VIAL IV ONE (11:50)
[2020-04-13] MEDS ORDERED: piperacillin/tazo 3.375gm/50ml 50 ML IV ONE (14:30)
[2020-04-13] MEDS ORDERED: HYDROcodone/acetaminophen 10/325mg tab PO ONE (15:50)
[2020-04-13 19:22] VITALS: BP 106/60
--- NOTE | 2020-04-13 19:47 | NUR ---
[facility] IS NOW UNABLE TO TAKE PATIENT FOR TRANSFER.
[2020-04-13] MEDS ORDERED: ONDA4TAB6 PO (20:11)
[2020-04-13] MEDS ORDERED: HYDR-4353 PO (20:11)
== END 2020-04-13 20:24 | disposition home or self-care (01) ==
LOC: ER 03:40
DX: U07.1 COVID-19 (principal); R10.2 Pelvic and perineal pain; R10.12 Left upper quadrant pain; R11.0 Nausea; N94.89 Other specified conditions associated with female genital organs and menstrual cycle; G43.909 Migraine, unspecified, not intractable, without status migrainosus; J45.909 Unspecified asthma, uncomplicated; F17.200 Nicotine dependence, unspecified, uncomplicated; F15.90 Other stimulant use, unspecified, uncomplicated; Z90.49 Acquired absence of other specified parts of digestive tract; Z90.89 Acquired absence of other organs; Z72.89 Other problems related to lifestyle; Z88.5 Allergy status to narcotic agent; Z79.2 Long term (current) use of antibiotics; Z79.899 Other long term (current) drug therapy
CPT/HCPCS: 36415; 72195; 74178; 74181; 76830; 76856; 80053; 80305; 80320; 81001; 81025; 83605; 83690; 84145; 85025; 87040; 87081; 87210; 87491; 87591; 87635; 93976; 96365; 96375; 96376; 99285; A9575; C9803; J1885; J2405; J2543; J3010; J7030; Q9967; 96361

== ENCOUNTER → 2020-08-19 | Emergency (ER) | payer MEDICAID ==
[~2020-08-19] VITALS: Ht 172.7 cm; Wt 57.7 kg
[~2020-08-19] MED LIST changes: +CEPH-585 PO; -CEPH500C5 PO; -HYDR-4353 PO
[2020-08-19 03:08] VITALS: BP 149/86
== END | disposition home or self-care (01) ==
LOC: ER 04:52
DX: F10.10 Alcohol abuse, uncomplicated (principal); F15.10 Other stimulant abuse, uncomplicated; H57.11 Ocular pain, right eye; G43.909 Migraine, unspecified, not intractable, without status migrainosus; J45.909 Unspecified asthma, uncomplicated; Z90.49 Acquired absence of other specified parts of digestive tract; Z90.89 Acquired absence of other organs; Z72.89 Other problems related to lifestyle; Z88.5 Allergy status to narcotic agent; Z79.2 Long term (current) use of antibiotics; Z79.899 Other long term (current) drug therapy
CPT/HCPCS: 99281

== ENCOUNTER 2020-09-12 22:41 | Emergency (ER) | payer MEDICAID | END 2020-09-13 00:13 | disposition left against medical advice (07) | LOC: ER 22:42 | DX: R09.89 Other specified symptoms and signs involving the circulatory and respiratory systems (principal); Z53.21 Procedure and treatment not carried out due to patient leaving prior to being seen by health care provider ==

== ENCOUNTER 2020-09-14 19:54 | Emergency (ER) | payer MEDICAID, OTHER ==
[~2020-09-14] VITALS: Ht 172.7 cm; Wt 61.4 kg
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
--- NOTE | 2020-09-14 21:00 | NUR ---
[facility] [address] CALLED I SPOKE WITH SARATH. SARATH REPORTS THAT SHE WILL EITHER BE HERE IN 1 HOUR OR SEND AND ADVOCATE IN HER PLACE.
--- NOTE | 2020-09-14 23:45 | NUR ---
2 Ada arrived to consult with pt. Pt requested presence of a female, Eliza WAGONER to observe questioning.
--- NOTE | 2020-09-15 00:01 | NUR ---
Pt care given by RIZWANA Kay. Report given.
[2020-09-15 00:52] LABS: URINE HCG NEGATIVE (NEG)
== END 2020-09-15 01:58 | disposition home or self-care (01) ==
LOC: ER 19:55
DX: T76.21XA Adult sexual abuse, suspected, initial encounter (principal); G43.909 Migraine, unspecified, not intractable, without status migrainosus; J45.909 Unspecified asthma, uncomplicated; F17.200 Nicotine dependence, unspecified, uncomplicated; F10.10 Alcohol abuse, uncomplicated; F15.90 Other stimulant use, unspecified, uncomplicated; Z90.49 Acquired absence of other specified parts of digestive tract; Z88.5 Allergy status to narcotic agent; Z79.899 Other long term (current) drug therapy; Y90.9 Presence of alcohol in blood, level not specified; Y92.89 Other specified places as the place of occurrence of the external cause
CPT/HCPCS: 81025; 99284

== ENCOUNTER 2020-12-12 20:58 | Emergency (ER) | payer MEDICAID, OTHER ==
[~2020-12-12] VITALS: Ht 172.7 cm; Wt 59.1 kg
[2020-12-12] MEDS ORDERED: ondansetron/PF 4mg/2ml inj IV ONE (21:30)
[2020-12-12] MEDS ORDERED: normal saline 1000ML IV soln IVB ONE (21:30)
[2020-12-12 22:14] LABS: BASOPHILS % (AUTO) 0.4 % (0-1); EOSINOPHILS % (AUTO) 0.9 % (0-6); HEMATOCRIT 38.3 % (35.0-45.0); HEMOGLOBIN 12.4 g/dl (12.0-16.0); LYMPHOCYTES # (AUTO) 1.7 X10'3 (1.1-4.8); LYMPHOCYTES % (AUTO) 30.7 % (21-51); MEAN CORPUSCULAR HEMOGLOBIN 30.6 PG (27.0-31.0); MEAN CORPUSCULAR HGB CONC 32.5 g/dL (33.0-36.5); MEAN CORPUSCULAR VOLUME 94.2 FL (78-98); MEAN PLATELET VOLUME 7.3 FL (7.4-10.4); MONOCYTES # (AUTO) 0.3 X10'3 (0-0.9); MONOCYTES % (AUTO) 5.5 % (2-12); NEUTROPHILS # (AUTO) 3.4 X10'3 (1.8-7.7); NEUTROPHILS % (AUTO) 62.5 % (42-75); PLATELET COUNT 447 X10'3 (140-440); RED BLOOD COUNT 4.07 X10'6 (4.20-5.60); RED CELL DISTRIBUTION WIDTH 13.1 % (11.5-14.5); WHITE BLOOD COUNT 5.4 X10'3 (4.5-11.0)
[2020-12-12 22:20] LABS: ALANINE AMINOTRANSFERASE 22 U/L (12-78); ALBUMIN/GLOBULIN RATIO 1.2 (1.1-1.5); ALKALINE PHOSPHATASE 69 IU/L (46-116); ANION GAP 12 (8-16); ASPARTATE AMINO TRANSFERASE 17 U/L (10-37); BILIRUBIN,TOTAL 0.2 MG/DL (0.1-1.0); BLOOD UREA NITROGEN 13 MG/DL (7-18); BUN/CREATININE RATIO 15.7 (6.6-38.0); CALCIUM 8.6 MG/DL (8.5-10.1); CHLORIDE 108 MMOL/L (99-107); CREATININE 0.83 MG/DL (0.40-0.90); ETHANOL 0.027 GM/DL (0.0-0.010); GLUCOSE 120 MG/DL (70-104); POTASSIUM 3.9 MMOL/L (3.5-5.1); SODIUM 144 MMOL/L (135-145); TOTAL CARBON DIOXIDE 23.6 MMOL/L (24-32); TOTAL PROTEIN 7.4 G/DL (6.4-8.2); eGFR 78 ML/MIN
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
--- NOTE | 2020-12-12 23:00 | NUR ---
Pt transfer from triage room to bed 2 spoke with coral chaney about ekg coral and patient sated that ekg did not need to be completed
[2020-12-12] MEDS ORDERED: HYDR-3965 PO (23:07)
--- NOTE | 2020-12-13 00:25 | NUR ---
ortho at the bedside wraping pt right arm as ordered
[2020-12-13 00:34] VITALS: BP 106/70
== END 2020-12-13 00:38 | disposition home or self-care (01) ==
LOC: ER 20:59
DX: S52.501A Unspecified fracture of the lower end of right radius, initial encounter for closed fracture (principal); S30.1XXA Contusion of abdominal wall, initial encounter; F10.129 Alcohol abuse with intoxication, unspecified; I95.1 Orthostatic hypotension; R42 Dizziness and giddiness; R11.0 Nausea; G43.909 Migraine, unspecified, not intractable, without status migrainosus; J45.909 Unspecified asthma, uncomplicated; F15.90 Other stimulant use, unspecified, uncomplicated; Z88.5 Allergy status to narcotic agent; Z90.49 Acquired absence of other specified parts of digestive tract; Z79.899 Other long term (current) drug therapy; Y90.0 Blood alcohol level of less than 20 mg/100 ml; X58.XXXA Exposure to other specified factors, initial encounter; Y93.89 Activity, other specified; Y92.89 Other specified places as the place of occurrence of the external cause; Y99.8 Other external cause status
CPT/HCPCS: 29125; 36415; 73110; 80053; 80320; 85025; 96360; 99284; J7030

== ENCOUNTER 2022-07-24 13:39 | Emergency (ER) | payer MEDICAID ==
[~2022-07-24] VITALS: Ht 172.7 cm; Wt 65.9 kg
[~2022-07-24 13:39] MED LIST changes: -CEPH-585 PO
[2022-07-24 13:49] VITALS: BP 146/106
[2022-07-24] MEDS ORDERED: bacitracin 15gm ointment TP ONE (14:40)
[2022-07-24] MEDS ORDERED: TETanus/Pertussis (Acell)/Diphther VAC/PF (Tdap-Adult) 0.5ml syringe IMVAC ONE (14:40)
[2022-07-24] MEDS ORDERED: LIDOCAINE 2%/EPI 1:100,000 inj. Multi-dose 20 ML VIAL IJ ONE (14:40)
[2022-07-24] MEDS ORDERED: CEPH250T PO (15:25)
--- NOTE | 2022-07-24 17:00 | NUR ---
PT LEFT WITHOUT RECEIVING DC PAPERWORK.
== END 2022-07-24 17:00 | disposition home or self-care (01) ==
LOC: ER 13:39
DX: S91.311A Laceration without foreign body, right foot, initial encounter (principal); G43.909 Migraine, unspecified, not intractable, without status migrainosus; J45.909 Unspecified asthma, uncomplicated; F15.90 Other stimulant use, unspecified, uncomplicated; F10.10 Alcohol abuse, uncomplicated; Z90.49 Acquired absence of other specified parts of digestive tract; Z88.5 Allergy status to narcotic agent; Z79.899 Other long term (current) drug therapy; W25.XXXA Contact with sharp glass, initial encounter; Y93.89 Activity, other specified; Y92.89 Other specified places as the place of occurrence of the external cause; Y99.8 Other external cause status; Y90.9 Presence of alcohol in blood, level not specified
CPT/HCPCS: 12001; 73630; 90471; 90715; 99283; A6449

== ENCOUNTER 2022-09-04 22:52 | Emergency (ER) | payer MEDICAID ==
[~2022-09-04] VITALS: Ht 172.7 cm; Wt 63.6 kg
[2022-09-05] MEDS ORDERED: acetaminophen 325mg tablet PO ONE (00:20)
[2022-09-05] MEDS ORDERED: ibuprofen tablet 400 MG TABLET PO ONE (00:20)
[2022-09-05 00:48] VITALS: BP 135/90
== END 2022-09-05 00:44 | disposition home or self-care (01) ==
LOC: ER 22:53
DX: M25.561 Pain in right knee (principal); M25.551 Pain in right hip; G43.909 Migraine, unspecified, not intractable, without status migrainosus; J45.909 Unspecified asthma, uncomplicated; F15.20 Other stimulant dependence, uncomplicated; Z88.5 Allergy status to narcotic agent; Z90.49 Acquired absence of other specified parts of digestive tract; Y08.89XA Assault by other specified means, initial encounter; Y93.89 Activity, other specified; Y92.89 Other specified places as the place of occurrence of the external cause; Y99.8 Other external cause status
CPT/HCPCS: 70450; 72125; 73502; 73560; 73590; 99284

== ENCOUNTER 2022-12-03 10:12 | Emergency (ER) | payer MEDICAID ==
[~2022-12-03] VITALS: Ht 172.7 cm; Wt 61.8 kg
[2022-12-03 10:28] VITALS: BP 135/89; PULSE 88; RESP 16; TEMP 98.8; O2SAT 100
== END 2022-12-03 10:50 | disposition home or self-care (01) ==
LOC: ER 10:12
DX: F10.90 Alcohol use, unspecified, uncomplicated (principal); G43.909 Migraine, unspecified, not intractable, without status migrainosus; F15.90 Other stimulant use, unspecified, uncomplicated; J45.909 Unspecified asthma, uncomplicated; Z90.49 Acquired absence of other specified parts of digestive tract; Z72.89 Other problems related to lifestyle; Z79.899 Other long term (current) drug therapy; Z88.8 Allergy status to other drugs, medicaments and biological substances
CPT/HCPCS: 99281

== ENCOUNTER 2022-12-13 20:37 | Emergency (ER) | payer MEDICAID ==
[~2022-12-13] VITALS: Ht 172.7 cm; Wt 63.6 kg
[2022-12-13 20:43] VITALS: BP 136/100; PULSE 92; RESP 18; TEMP 97.7; O2SAT 100
[2022-12-13] MEDS ORDERED: NALT50TA PO (20:51)
[2022-12-13] MEDS ORDERED: FOLI1TAB27 PO (20:51)
--- NOTE | 2022-12-13 21:06 | NUR ---
pt left room to lobby with family and belongings after partial assessment.
== END 2022-12-13 21:07 | disposition left against medical advice (07) ==
LOC: ER 20:38
DX: R06.02 Shortness of breath (principal); Z53.21 Procedure and treatment not carried out due to patient leaving prior to being seen by health care provider
CPT/HCPCS: 99281

== ENCOUNTER 2023-01-02 22:06 | Emergency (ER) | payer MEDICAID ==
[~2023-01-02] VITALS: Ht 172.7 cm; Wt 64.0 kg
[~2023-01-02 22:06] MED LIST changes: -DIPH25CA83 PO; -FLUC200T PO; +FOLI1TAB27 PO; -HYDR-4383 PO; +NALT50TA PO; -NITR-79 PO; -ONDA4TAB6 PO
[2023-01-02 22:13] VITALS: TEMP 98.1
--- NOTE | 2023-01-02 22:42 | NUR ---
PT REFUSING LAB DRAW. AWARE
[2023-01-03 00:10] LABS: HEMOGLOBIN 14.7 g/dl (12.0-16.0)
[2023-01-03 00:16] LABS: BASOPHILS % (AUTO) 0.5 % (0-1); EOSINOPHILS # (AUTO) 0.1 X10'3 (0-0.9); EOSINOPHILS % (AUTO) 2.3 % (0-6); HEMATOCRIT 43.4 % (35.0-45.0); LYMPHOCYTES # (AUTO) 1.7 X10'3 (1.1-4.8); MEAN CORPUSCULAR HEMOGLOBIN 32.4 PG (27.0-31.0); MEAN CORPUSCULAR HGB CONC 33.8 g/dL (33.0-36.5); MEAN PLATELET VOLUME 7.3 FL (7.4-10.4); MONOCYTES # (AUTO) 0.3 X10'3 (0-0.9); MONOCYTES % (AUTO) 7.3 % (2-12); NEUTROPHILS # (AUTO) 2.1 X10'3 (1.8-7.7); NEUTROPHILS % (AUTO) 48.9 % (42-75); PLATELET COUNT 329 X10'3 (140-440); RED BLOOD COUNT 4.52 X10'6 (4.20-5.60); RED CELL DISTRIBUTION WIDTH 13.4 % (11.5-14.5); WHITE BLOOD COUNT 4.2 X10'3 (4.5-11.0)
[2023-01-03 00:18] LABS: D-DIMER < 0.19 MG/L FEU (0-0.50)
--- NOTE | 2023-01-03 00:20 | NUR ---
Primary RN relieved for lunch break.
[2023-01-03 00:21] LABS: ALANINE AMINOTRANSFERASE 42 U/L (12-78); ALBUMIN 4.1 G/DL (3.4-5.0); ALBUMIN/GLOBULIN RATIO 1.2 (1.1-1.5); ALKALINE PHOSPHATASE 85 IU/L (46-116); ANION GAP 9 (8-16); ASPARTATE AMINO TRANSFERASE 33 U/L (10-37); BILIRUBIN,TOTAL 0.3 MG/DL (0.1-1.0); BLOOD UREA NITROGEN 12 MG/DL (7-18); BUN/CREATININE RATIO 17.4 (10.0-20.0); CALCIUM 9.5 MG/DL (8.5-10.1); CHLORIDE 106 MMOL/L (99-107); CREATININE 0.69 MG/DL (0.40-0.90); GLUCOSE 89 MG/DL (70-104); POTASSIUM 3.3 MMOL/L (3.5-5.1); SODIUM 143 MMOL/L (135-145); TOTAL CARBON DIOXIDE 27.6 MMOL/L (24-32); TOTAL PROTEIN 7.5 G/DL (6.4-8.2); eCRCL 112 ML/MIN; eGFR > 90 ML/MIN
[2023-01-03 00:29] LABS: PRO BRAIN NATRIURETIC PEPTIDE 39 PG/ML (0-125)
[2023-01-03 00:32] LABS: HCG SERUM QL NEGATIVE
[2023-01-03 01:10] LABS: BETA HCG,QUANTITATIVE < 1.0 mIU/ml
[2023-01-03 02:26] VITALS: BP 127/79; PULSE 80; RESP 14; O2SAT 99
== END 2023-01-03 03:01 | disposition home or self-care (01) ==
LOC: ER 22:06
DX: R55 Syncope and collapse (principal); R06.02 Shortness of breath; G43.909 Migraine, unspecified, not intractable, without status migrainosus; J45.909 Unspecified asthma, uncomplicated; F15.90 Other stimulant use, unspecified, uncomplicated; Z72.89 Other problems related to lifestyle; Z90.49 Acquired absence of other specified parts of digestive tract; Z88.8 Allergy status to other drugs, medicaments and biological substances; Z91.030 Bee allergy status; Z79.899 Other long term (current) drug therapy
CPT/HCPCS: 36415; 70450; 71045; 80053; 83880; 84484; 84702; 84703; 85025; 85379; 93005; 99285

== ENCOUNTER 2023-01-26 19:29 | Emergency (ER) | payer MEDICAID ==
[~2023-01-26] VITALS: Ht 162.6 cm; Wt 65.9 kg
[2023-01-26 19:30] VITALS: O2SAT 98
[2023-01-26 20:24] LABS: BASOPHILS % (AUTO) 0.5 % (0-1); EOSINOPHILS # (AUTO) 0.1 X10'3 (0-0.9); EOSINOPHILS % (AUTO) 1.3 % (0-6); HEMATOCRIT 38.6 % (35.0-45.0); HEMOGLOBIN 12.9 g/dl (12.0-16.0); MEAN CORPUSCULAR HEMOGLOBIN 32.2 PG (27.0-31.0); MEAN CORPUSCULAR HGB CONC 33.5 g/dL (33.0-36.5); MEAN CORPUSCULAR VOLUME 96.1 FL (78-98); MEAN PLATELET VOLUME 7.3 FL (7.4-10.4); MONOCYTES # (AUTO) 0.3 X10'3 (0-0.9); MONOCYTES % (AUTO) 6.6 % (2-12); NEUTROPHILS # (AUTO) 2.7 X10'3 (1.8-7.7); NEUTROPHILS % (AUTO) 52.6 % (42-75); PLATELET COUNT 348 X10'3 (140-440); RED BLOOD COUNT 4.01 X10'6 (4.20-5.60); RED CELL DISTRIBUTION WIDTH 13.6 % (11.5-14.5); WHITE BLOOD COUNT 5.2 X10'3 (4.5-11.0)
[2023-01-26 20:36] LABS: ALANINE AMINOTRANSFERASE 77 U/L (12-78); ALBUMIN/GLOBULIN RATIO 1.3 (1.1-1.5); ALKALINE PHOSPHATASE 99 IU/L (46-116); ANION GAP 14 (8-16); ASPARTATE AMINO TRANSFERASE 49 U/L (10-37); BILIRUBIN,TOTAL 0.1 MG/DL (0.1-1.0); BLOOD UREA NITROGEN 20 MG/DL (7-18); BUN/CREATININE RATIO 24.7 (10.0-20.0); CALCIUM 9.7 MG/DL (8.5-10.1); CHLORIDE 108 MMOL/L (99-107); CREATININE 0.81 MG/DL (0.40-0.90); GLUCOSE 93 MG/DL (70-104); POTASSIUM 3.7 MMOL/L (3.5-5.1); SODIUM 144 MMOL/L (135-145); TOTAL CARBON DIOXIDE 22.3 MMOL/L (24-32); TOTAL PROTEIN 7.1 G/DL (6.4-8.2); eCRCL 81 ML/MIN; eGFR 79 ML/MIN
[2023-01-26] MEDS ORDERED: LORazepam 2 mg/ml vial IV STA (20:37)
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
[2023-01-26] MEDS ORDERED: normal saline 1000ML IV soln IVB ONE (21:35)
[2023-01-26 23:16] VITALS: RESP 16
[2023-01-26 23:51] VITALS: BP 111/70; PULSE 93
[2023-01-27 03:05] VITALS: TEMP 98.1
== END 2023-01-27 03:10 | disposition left against medical advice (07) ==
LOC: ER 19:30
DX: G40.909 Epilepsy, unspecified, not intractable, without status epilepticus (principal); G43.909 Migraine, unspecified, not intractable, without status migrainosus; I50.9 Heart failure, unspecified; J45.909 Unspecified asthma, uncomplicated; F17.200 Nicotine dependence, unspecified, uncomplicated; F15.90 Other stimulant use, unspecified, uncomplicated; Z72.89 Other problems related to lifestyle; Z90.49 Acquired absence of other specified parts of digestive tract; Z88.8 Allergy status to other drugs, medicaments and biological substances; Z79.899 Other long term (current) drug therapy; Z91.030 Bee allergy status
CPT/HCPCS: 36415; 80053; 85025; 93005; 96361; 96374; 99284; J2060; J7030

== ENCOUNTER 2023-07-04 00:09 | Emergency (ER) | payer MEDICAID ==
[~2023-07-04] VITALS: Ht 172.7 cm; Wt 64.3 kg
[2023-07-04] MEDS ORDERED: AZIT-164 PO (00:48)
[2023-07-04] MEDS: azithromycin 250mg tablet PO ONE (00:57)
[2023-07-04 01:00] VITALS: BP 143/98; PULSE 82; RESP 14; TEMP 98.1; O2SAT 98
== END 2023-07-04 01:02 | disposition home or self-care (01) ==
LOC: ER 00:10
DX: R05.9 Cough, unspecified (principal); R09.81 Nasal congestion; I11.0 Hypertensive heart disease with heart failure; J45.909 Unspecified asthma, uncomplicated; G43.909 Migraine, unspecified, not intractable, without status migrainosus; F15.10 Other stimulant abuse, uncomplicated; Z88.5 Allergy status to narcotic agent; Z79.899 Other long term (current) drug therapy
CPT/HCPCS: 99283

== ENCOUNTER 2023-10-12 21:41 | Emergency (ER) | payer MEDICAID ==
[~2023-10-12] VITALS: Ht 172.7 cm; Wt 63.6 kg
[2023-10-12 21:55] VITALS: TEMP 98.7
[2023-10-13 04:18] VITALS: BP 126/91; PULSE 78; RESP 16; O2SAT 98
== END 2023-10-13 04:20 | disposition home or self-care (01) ==
LOC: ER 21:41
DX: T63.441A Toxic effect of venom of bees, accidental (unintentional), initial encounter (principal); G43.909 Migraine, unspecified, not intractable, without status migrainosus; I50.9 Heart failure, unspecified; J45.909 Unspecified asthma, uncomplicated; F15.90 Other stimulant use, unspecified, uncomplicated; Z88.5 Allergy status to narcotic agent; Z91.030 Bee allergy status; Z79.899 Other long term (current) drug therapy; Z90.49 Acquired absence of other specified parts of digestive tract; Y92.89 Other specified places as the place of occurrence of the external cause
CPT/HCPCS: 99285

== ENCOUNTER 2023-10-26 20:36 | Emergency (ER) | payer MEDICAID ==
[~2023-10-26] VITALS: Ht 172.7 cm; Wt 65.9 kg
[2023-10-26 21:37] LABS: BASOPHILS % (AUTO) 0.8 % (0-1); EOSINOPHILS # (AUTO) 0.1 X10'3 (0-0.9); EOSINOPHILS % (AUTO) 1.6 % (0-6); HEMOGLOBIN 14.3 g/dl (12.0-16.0); LYMPHOCYTES # (AUTO) 1.8 X10'3 (1.1-4.8); LYMPHOCYTES % (AUTO) 40.5 % (21-51); MEAN CORPUSCULAR HEMOGLOBIN 31.9 PG (27.0-31.0); MEAN CORPUSCULAR HGB CONC 33.3 g/dL (33.0-36.5); MEAN CORPUSCULAR VOLUME 95.7 FL (78-98); MEAN PLATELET VOLUME 7.6 FL (7.4-10.4); MONOCYTES # (AUTO) 0.3 X10'3 (0-0.9); MONOCYTES % (AUTO) 6.4 % (2-12); NEUTROPHILS # (AUTO) 2.3 X10'3 (1.8-7.7); NEUTROPHILS % (AUTO) 50.7 % (42-75); PLATELET COUNT 338 X10'3 (140-440); RED BLOOD COUNT 4.49 X10'6 (4.20-5.60); RED CELL DISTRIBUTION WIDTH 13.4 % (11.5-14.5); WHITE BLOOD COUNT 4.6 X10'3 (4.5-11.0)
[2023-10-26 21:43] LABS: ALANINE AMINOTRANSFERASE 133 U/L (12-78); ALBUMIN 4.5 G/DL (3.4-5.0); ALBUMIN/GLOBULIN RATIO 1.2 (1.1-1.5); ALKALINE PHOSPHATASE 94 IU/L (46-116); ANION GAP 10 (8-16); ASPARTATE AMINO TRANSFERASE 83 U/L (10-37); BILIRUBIN,TOTAL 0.3 MG/DL (0.1-1.0); BLOOD UREA NITROGEN 16 MG/DL (7-18); CALCIUM 9.6 MG/DL (8.5-10.1); CHLORIDE 105 MMOL/L (99-107); CREATININE 0.89 MG/DL (0.40-0.90); GLUCOSE 86 MG/DL (70-104); POTASSIUM 3.7 MMOL/L (3.5-5.1); SODIUM 143 MMOL/L (135-145); TOTAL CARBON DIOXIDE 28.4 MMOL/L (24-32); TOTAL PROTEIN 8.2 G/DL (6.4-8.2); eCRCL 86 ML/MIN; eGFR 71 ML/MIN
[2023-10-26 23:30] VITALS: BP 138/85; PULSE 90; RESP 16; TEMP 98.9; O2SAT 98
== END 2023-10-26 23:59 | disposition left against medical advice (07) ==
LOC: ER 20:36
DX: R56.9 Unspecified convulsions (principal); Z53.21 Procedure and treatment not carried out due to patient leaving prior to being seen by health care provider
CPT/HCPCS: 36415; 80053; 85025

== ENCOUNTER 2023-11-06 09:10 | Emergency (ER) | payer MEDICAID ==
[~2023-11-06] VITALS: Ht 170.2 cm; Wt 65.0 kg
[2023-11-06 09:16] VITALS: BP 148/100; PULSE 89; RESP 18; TEMP 97.1; O2SAT 98
== END 2023-11-06 09:56 | disposition home or self-care (01) ==
LOC: ER 09:11
DX: Z00.00 Encounter for general adult medical examination without abnormal findings (principal); F10.10 Alcohol abuse, uncomplicated; G43.909 Migraine, unspecified, not intractable, without status migrainosus; J45.909 Unspecified asthma, uncomplicated; F15.90 Other stimulant use, unspecified, uncomplicated; I50.9 Heart failure, unspecified; Z90.49 Acquired absence of other specified parts of digestive tract; Z88.8 Allergy status to other drugs, medicaments and biological substances; Z79.899 Other long term (current) drug therapy; Z91.030 Bee allergy status; Y90.9 Presence of alcohol in blood, level not specified
CPT/HCPCS: 99281

== ENCOUNTER 2024-02-15 03:19 | Emergency (ER) | payer MEDICAID ==
[~2024-02-15] VITALS: Ht 172.7 cm; Wt 62.8 kg
[~2024-02-15 03:19] MED LIST changes: -NALT50TA PO; +NALT50TA5 PO
[2024-02-15 05:40] VITALS: BP 128/84; PULSE 78; RESP 16; TEMP 98.4; O2SAT 98
== END 2024-02-15 05:42 | disposition home or self-care (01) ==
LOC: ER 03:20
DX: S62.396A Other fracture of fifth metacarpal bone, right hand, initial encounter for closed fracture (principal); G43.909 Migraine, unspecified, not intractable, without status migrainosus; J45.909 Unspecified asthma, uncomplicated; I50.9 Heart failure, unspecified; F10.90 Alcohol use, unspecified, uncomplicated; F15.90 Other stimulant use, unspecified, uncomplicated; F17.200 Nicotine dependence, unspecified, uncomplicated; Z90.49 Acquired absence of other specified parts of digestive tract; Z88.5 Allergy status to narcotic agent; Z91.030 Bee allergy status; Z79.899 Other long term (current) drug therapy; X58.XXXA Exposure to other specified factors, initial encounter; Y93.89 Activity, other specified; Y92.89 Other specified places as the place of occurrence of the external cause; Y99.8 Other external cause status
CPT/HCPCS: 29125; 73130; 99283; A6449

== ENCOUNTER 2024-08-31 10:28 | Emergency (ER) | payer MEDICAID ==
[~2024-08-31] VITALS: Ht 172.7 cm; Wt 60.6 kg
[2024-08-31 10:35] VITALS: BP 153/96; PULSE 92; RESP 16; TEMP 98.5; O2SAT 100
[2024-08-31] MEDS ORDERED: AMOX500C2 PO (11:00)
== END 2024-08-31 11:04 | disposition home or self-care (01) ==
LOC: ER 10:28
DX: K04.7 Periapical abscess without sinus (principal); K02.9 Dental caries, unspecified; I50.9 Heart failure, unspecified; J45.909 Unspecified asthma, uncomplicated; G43.909 Migraine, unspecified, not intractable, without status migrainosus; F15.90 Other stimulant use, unspecified, uncomplicated; F10.90 Alcohol use, unspecified, uncomplicated; Z88.5 Allergy status to narcotic agent; Z91.030 Bee allergy status; Z90.49 Acquired absence of other specified parts of digestive tract; Z79.899 Other long term (current) drug therapy; Y90.9 Presence of alcohol in blood, level not specified
CPT/HCPCS: 99283

== ENCOUNTER 2025-01-23 08:15 | Emergency (ER) | payer OTHER, MEDICAID ==
[~2025-01-23] VITALS: Ht 172.7 cm; Wt 65.0 kg
[2025-01-23 08:26] VITALS: BP 152/96; PULSE 84; RESP 18; O2SAT 100
[2025-01-23] MEDS ORDERED: BICT1TAB PO (09:56)
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
[2025-01-23 10:10] VITALS: TEMP 97.9
[2025-01-23 11:10] LABS: HIV ANTIBODY 1&2 RAPID NON-REACTIVE (Neg)
== END 2025-01-23 10:14 | disposition home or self-care (01) ==
LOC: ER 08:15
DX: Z77.21 Contact with and (suspected) exposure to potentially hazardous body fluids (principal); J45.909 Unspecified asthma, uncomplicated; I50.9 Heart failure, unspecified; F10.90 Alcohol use, unspecified, uncomplicated; G43.909 Migraine, unspecified, not intractable, without status migrainosus; F15.90 Other stimulant use, unspecified, uncomplicated; Z90.49 Acquired absence of other specified parts of digestive tract; Z91.030 Bee allergy status; Z88.5 Allergy status to narcotic agent; W46.0XXA Contact with hypodermic needle, initial encounter; Y93.89 Activity, other specified; Y92.89 Other specified places as the place of occurrence of the external cause; Y99.0 Civilian activity done for income or pay; Z79.899 Other long term (current) drug therapy; Y90.9 Presence of alcohol in blood, level not specified
CPT/HCPCS: 36415; 86703; 86704; 86705; 86803; 87522; 99283

== ENCOUNTER 2025-03-16 13:57 | Emergency (ER) | payer OTHER, MEDICAID ==
[~2025-03-16] VITALS: Ht 172.7 cm; Wt 63.8 kg
[~2025-03-16 13:57] MED LIST changes: +BICT1TAB PO
[2025-03-16 14:01] VITALS: BP 171/109; PULSE 90; RESP 16; TEMP 97.9; O2SAT 98
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
[2025-03-16 14:29] LABS: MEAN PLATELET VOLUME 7.2 FL (7.4-10.4); RED CELL DISTRIBUTION WIDTH 14.7 % (11.5-14.5)
[2025-03-16] MEDS ORDERED: iohexol 300mg/ml 100ml inj. ONE (14:31)
[2025-03-16 14:44] LABS: CREATININE 0.71 MG/DL (0.40-0.90); TOTAL CARBON DIOXIDE 31.6 MMOL/L (24-32); eCRCL 106 ML/MIN; eGFR > 90 ML/MIN
== END 2025-03-16 18:01 | disposition left against medical advice (07) ==
LOC: ER 13:57
DX: K59.00 Constipation, unspecified (principal); R11.10 Vomiting, unspecified; F10.10 Alcohol abuse, uncomplicated; J45.909 Unspecified asthma, uncomplicated; I50.9 Heart failure, unspecified; G43.909 Migraine, unspecified, not intractable, without status migrainosus; F15.90 Other stimulant use, unspecified, uncomplicated; Z88.5 Allergy status to narcotic agent; Z91.030 Bee allergy status; Z90.49 Acquired absence of other specified parts of digestive tract; Z79.899 Other long term (current) drug therapy; Y90.9 Presence of alcohol in blood, level not specified; V29.99XA Rider (driver) (passenger) of other motorcycle injured in unspecified traffic accident, initial encounter; Y93.89 Activity, other specified; Y92.89 Other specified places as the place of occurrence of the external cause; Y99.8 Other external cause status
CPT/HCPCS: 36415; 80053; 83690; 85025; 99283; Q9967

== ENCOUNTER 2025-04-07 01:52 | Emergency (ER) | payer MEDICAID, OTHER ==
[~2025-04-07] VITALS: Ht 172.7 cm; Wt 63.4 kg
[2025-04-07 01:52] VITALS: BP 144/96; PULSE 97; RESP 19; TEMP 97.9; O2SAT 97
== END 2025-04-07 02:52 | disposition left against medical advice (07) ==
LOC: ER 01:52
DX: Z00.00 Encounter for general adult medical examination without abnormal findings (principal); Z53.21 Procedure and treatment not carried out due to patient leaving prior to being seen by health care provider; Z88.5 Allergy status to narcotic agent; Z91.030 Bee allergy status; Y04.8XXA Assault by other bodily force, initial encounter; Y93.89 Activity, other specified; Y92.89 Other specified places as the place of occurrence of the external cause; Y99.8 Other external cause status
CPT/HCPCS: 99281

== ENCOUNTER 2025-04-07 03:33 | Emergency (ER) | payer MEDICAID, OTHER ==
[~2025-04-07] VITALS: Ht 172.7 cm; Wt 63.4 kg
[2025-04-07 03:43] VITALS: BP 126/82; PULSE 85; RESP 15; TEMP 98.9; O2SAT 100
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
[2025-04-07] MEDS: TETanus/Pertussis (Acell)/Diphther VAC/PF (Tdap-Adult) 0.5ml syringe IMVAC ONE (05:21)
== END 2025-04-07 05:32 | disposition home or self-care (01) ==
LOC: ER 03:34
DX: S61.211A Laceration without foreign body of left index finger without damage to nail, initial encounter (principal); J45.909 Unspecified asthma, uncomplicated; I50.9 Heart failure, unspecified; G43.909 Migraine, unspecified, not intractable, without status migrainosus; F15.90 Other stimulant use, unspecified, uncomplicated; Z88.5 Allergy status to narcotic agent; Z91.030 Bee allergy status; Z90.49 Acquired absence of other specified parts of digestive tract; Z79.899 Other long term (current) drug therapy; X58.XXXA Exposure to other specified factors, initial encounter; Y93.89 Activity, other specified; Y92.89 Other specified places as the place of occurrence of the external cause; Y99.8 Other external cause status
CPT/HCPCS: 90471; 90715; 99284

== ENCOUNTER 2025-05-02 14:08 | Emergency (ER) | payer MEDICAID ==
[~2025-05-02] VITALS: Ht 172.7 cm; Wt 63.9 kg
[2025-05-02 14:14] VITALS: BP 155/101; PULSE 92; RESP 18; TEMP 97.7; O2SAT 99
--- NOTE | 2025-05-02 14:20 | Physician Documentation ---
History of Present Illness ~ Chief Complaint: Staple Removal Stated Complaint: STAPEL REMOVAL Time Seen by MD: 14:18 Primary Medical Doctor: [facility] Source: patient Mode of Arrival: POV Exam Limitations: no limitations HPI 39-year-old female here for staple removal of 2 gwendolyn and scalp for over 10 days. No acute concerns Tetanus Within 5 Years: Yes Medication Reconciliation Allergies: Coded Allergies: codeine (Unverified Allergy, Mild, 05/02/25) chest tightness bee venom protein (honey bee) (Verified Allergy, Unknown, 05/02/25) Scheduled Bictegrav/Emtricit/Tenofov Ala (Biktarvy 50-200-25 mg Tablet), 1 TAB PO DAILY Folic Acid* (Folic Acid*), 1 TAB PO DAILY, (Reported) Naltrexone Hcl (Naltrexone Hcl), 1 TAB PO DAILY, (Reported) Past Medical History Past Medical History: Migraine, Seizures, Arrhythmia, Congestive Heart Failure, Asthma, *RENAL/* Past Surgical History: appendectomy, cholecystectomy Alcohol Use: Alcoholic Drug Use: methamphetamine Lives with: Family Lives In: Home Occupation: other Review of Systems All Other Systems at this time: Reviewed and Negative Integumentary: Reports: see HPI Physical Exam Vital Signs: RN Vital Signs have been reviewed: Yes, Temperature: 97.7, Source: Temporal, Heart Rate: 92, Respiratory Rate: 18, BP: 155/101, Pulse Oximetry: 99, Weight: 63.900 Oxygen Flow Rate: 0 Physical Exam General: Alert, no apparent distress. HEENT: moist mucous membranes. Two gwendolyn and scabbed area no signs of infection to left parietal region Neck: Full range of motion. Respiratory: No respiratory distress speaking in full sentences Chest: No accessory muscle use. Cardiovascular: Appears well perfused Neurologic: Oriented x4. Psychiatric: Normal mood and affect. Skin: Normal color, warm and dry. No edema, no ecchymosis. Progress Results/Orders Results/Orders Vital Signs 05/02/25 14:14 Temp 97.7 Pulse 92 Resp 18 B/P (MAP) 155/101 Pulse Ox 99 O2 Flow Rate 0 Medical Decision Making Additional information obtaine: old records Findings Two gwendolyn removed without complications Differential Dx:Considerations: Include: Other Departure Time of Disposition: 14:19 Disposition: 01 HOME / SELF CARE / HOMELESS Impression: Primary Impression: Removal of staple Condition: Stable Discharge Instructions: Suture Removal, Care After Additional Instructions: Monitor for any new or worsening symptoms follow up with primary care as needed Referrals: NO PRIMARY CARE PROVIDER (PCP) Education Educated: Patient, Family Educated regarding: diagnosis, treatment, need for follow up Signature Scribe Signature: No scribe Attestation: The note accurately reflects work and decisions made by me.Radha SAMAYOA 05/02/25 14:20 RADHA JIMENEZ NP May 02, 2025 14:20
== END 2025-05-02 14:31 | disposition home or self-care (01) ==
LOC: ER 14:09
DX: S01.91XD Laceration without foreign body of unspecified part of head, subsequent encounter (principal); G43.909 Migraine, unspecified, not intractable, without status migrainosus; F15.90 Other stimulant use, unspecified, uncomplicated; I50.9 Heart failure, unspecified; Z88.5 Allergy status to narcotic agent; Z91.030 Bee allergy status; Z90.49 Acquired absence of other specified parts of digestive tract; Z79.899 Other long term (current) drug therapy; X58.XXXD Exposure to other specified factors, subsequent encounter
CPT/HCPCS: 99282